=== PATIENT | female | born 1950 | race Caucasian/White ===

== ENCOUNTER → 2017-03-09 | Outpatient (CLI) | payer MEDICARE ==
[~2017-03-09] MED LIST: ATORVASTATIN CA80 MG PO; BACITRACIN OPH3.5 GM TP; CENTRUM SILVER1 EAC1 PO; CINNAMON500 MG PO; COLACE-DPS100 MG PO; CORDARONE DPS200 MG PO; EUCERIN CREME57 GM TP; FISH OIL 1,0001 EACH PO; HUMALOG KW200 UNIT/1 SQ; HUMALOG100 UNIT/1 SQ; LANTUS100 UNITS/ SQ; METAMUCIL0.52 GM PO; METOPROLOL TART25 MG PO; MIRALAX PACKET17 GM PO; SYNTHROID DP0.137 MG PO; TYLENOL DPS325 MG PO; ULTRAM DPS50 MG PO; VITAMIN E600 UNIT PO; ZANTAC DPS150 MG PO; [UNRECOGNIZED DRUG - OTHER] OU
== END | disposition home or self-care (01) ==
LOC: RAD.S 13:17
PROC: 0GBH3ZX Excision of Right Thyroid Gland Lobe, Percutaneous Approach, Diagnostic (ICD-10-PCS; principal; 2017-03-09)
DX: E04.1 Nontoxic single thyroid nodule (principal)